=== PATIENT | male | born 1990 ===

== ENCOUNTER 2018-08-16 01:41 | Emergency (ER) | payer SELFPAY ==
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
--- NOTE | 2018-08-16 07:28 | ED PDOC ---
- ECG O2 Sat by Pulse Oximetry: 95 (RA) Medical Decision Making Medical Decision Making: Time: 7:00 Patient was signed out to me by Dr. Cardona pending sobriety and reevaluation. Upon bedside evaluation during rounds, patient is noted to be resting comfortably in ED with stable vitals. No medical intervention needed at this time according to provider assessment. 9:30 Patient is awake, alert, and oriented at this time. He has a steady gait and normal speech. Upon provider evaluation, patient is medically stable and requires no further treatment in the ED at this time and will be discharged home. Scribe Attestation: Documented by Lesley Pierce, acting as a scribe for Jc Antunez MD. Provider Scribe Attestation: All medical record entries made by the Scribe were at my direction and personally dictated by me. I have reviewed the chart and agree that the record accurately reflects my personal performance of the history, physical exam, medical decision making, and the department course for this patient. I have also personally directed, reviewed, and agree with the discharge instructions and disposition. Disposition - Clinical Impression Clinical Impression: Alcohol abuse - POA Present On Arrival: None - Disposition Disposition: Routine/Home Disposition Time: 09:32 Condition: STABLE Instructions: Alcohol Use - When Is Drinking a Problem?, Effects of Alcohol on Your Health Forms: Circular (Frisian)
[2018-08-16 09:47] VITALS: BP 126/78; PULSE 78; RESP 19; TEMP 97.6
[2018-08-17 12:45] VITALS: O2SAT 95
== END 2018-08-16 09:51 | disposition home or self-care (01) ==
LOC: H.ER 01:41 → EDBD 01:41 → H.ER 09:51
DX: F10.129 Alcohol abuse with intoxication, unspecified (principal)
CPT/HCPCS: 82948; 96372; 99285; G0480; J1630; J2060